=== PATIENT | female | born 1965 | race Caucasian/White ===

== ENCOUNTER → 2016-07-14 | Outpatient (CLI) | payer OTHER ==
--- NOTE | 2016-07-14 08:47 | RAD ---
Right knee radiographs History: Right knee pain for one week, fall. Comparison: None. Findings: AP, lateral, and oblique views of the right knee. No acute fracture or dislocation is identified. No joint effusion is appreciated. Mild medial compartment degeneration is seen with marginal osteophyte formation and relative preservation of the joint space. Impression: 1. Mild medial compartment degeneration. 2. No acute osseous traumatic injury identified.
== END | disposition home or self-care (01) ==
LOC: DXRADRC 08:33
PROVIDERS: ATTEND Physician Assistant Medical
DX: M25.561 Pain in right knee (principal); M25.761 Osteophyte, right knee; W19.XXXA Unspecified fall, initial encounter; Y99.8 Other external cause status; Y93.89 Activity, other specified; Y92.89 Other specified places as the place of occurrence of the external cause
CPT/HCPCS: 73562

== ENCOUNTER → 2016-11-08 | Outpatient (CLI) | payer OTHER ==
--- NOTE | 2016-11-08 11:25 | RAD ---
KUCandelario, 11/08/2016: History: Abdominal bloating Gas is present in large and small bowel in a nonspecific pattern. There is no evidence of organomegaly. No abnormal abdominal calcifications are seen. IMPRESSION: No acute abdominal abnormality is detected.
== END | disposition home or self-care (01) ==
LOC: DXRADRC 10:49
PROVIDERS: ATTEND Physician Assistant Medical
DX: R14.0 Abdominal distension (gaseous) (principal)
CPT/HCPCS: 74000

== ENCOUNTER → 2017-01-12 | Outpatient (CLI) | payer OTHER ==
--- NOTE | 2017-01-12 08:47 | RAD ---
Chest, 2 views, 01/12/2017: History: Chest congestion, productive cough The heart size and pulmonary vascularity are normal. No pulmonary infiltrates are seen. There is no evidence of pleural fluid. IMPRESSION: No acute cardiopulmonary abnormality is detected.
== END | disposition home or self-care (01) ==
LOC: DXRADRC 08:34
PROVIDERS: ATTEND Physician Assistant Medical
DX: R09.89 Other specified symptoms and signs involving the circulatory and respiratory systems (principal); R05 Cough
CPT/HCPCS: 71020

== ENCOUNTER → 2018-05-13 | Outpatient (CLI) | payer OTHER ==
--- NOTE | 2018-05-13 14:16 | RAD ---
3 view study of the thoracic spine Clinical indications: Status post fall last Sunday. Back pain. FINDINGS: No compression fracture or discitis or lytic process is seen. Mild degenerative endplate spurring present. IMPRESSION: No acute compression fracture. Electronically signed by: Sam Hill MD (05/13/2018 2:13 PM) [facility]
== END | disposition home or self-care (01) ==
LOC: PMG 11:00
PROVIDERS: ATTEND Registered Nurse
DX: M46.04 Spinal enthesopathy, thoracic region (principal); Z91.81 History of falling
CPT/HCPCS: 72072

== ENCOUNTER → 2018-05-16 | Outpatient (CLI) | payer OTHER ==
--- NOTE | 2018-05-16 14:28 | RAD ---
EXAM: Head CT without contrast. HISTORY: Syncope. TECHNIQUE: Computed tomographic images of the head were obtained without contrast. *One or more of the following individualized dose reduction techniques were utilized for this examination: 1. Automated exposure control. 2. Adjustment of the mA and/or kV according to patient size. 3. Use of iterative reconstruction technique. COMPARISON: None. FINDINGS: There is no acute or subacute extra-axial or intraparenchymal hemorrhage. There is no mass effect or midline shift. There is no hydrocephalus. The bland-white matter differentiation pattern is intact. 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 There is minimal mucosal thickening along the anterior left ethmoid sinus. There may be a tiny right ethmoid osteoma. The mastoid air cells are clear. No suspicious calvarial lesion is seen. IMPRESSION: No acute intracranial findings. Electronically signed by: Madyson Pruitt MD (05/16/2018 2:26 PM) [id number]
--- NOTE | 2018-05-17 08:08 | RAD ---
Clinical indications: Syncopal episodes. Duplex sonography of the cervical portion of both carotid arteries was performed including color flow imaging and spectral waveform analysis with flow velocity measurement and bland scale evaluation. Right side: Peak systolic flow velocity of the CCA is 78 cm/sec. Peak systolic flow velocity of the ICA is 86 cm/sec. Thus, the ICA/CCA ratio is 1.1. Peak end diastolic flow velocity of the ICA is 25 cm/sec. The peak systolic velocity of the ECA is 78 cm/sec. Left side: Peak systolic flow velocity of the CCA is 91 cm/sec. Peak systolic flow velocity of the ICA is 112 cm/sec. Thus, the ICA/CCA ratio is 1.2. Peak end diastolic flow velocity of the ICA is 39 cm/sec. Peak systolic flow velocity of the ECA is 81 cm/sec. No significant plaque formation is identified. Antegrade vertebral flow is seen bilaterally. The measurements were made using the NASCET criteria. Impression:No significant plaque formation is identified within the cervical portion of either carotid artery. Electronically signed by: Sam Hill MD (05/17/2018 8:05 AM) [facility]
== END | disposition home or self-care (01) ==
LOC: US 12:46
PROVIDERS: ATTEND Registered Nurse
DX: E34.8 Other specified endocrine disorders (principal); R55 Syncope and collapse
CPT/HCPCS: 70450; 93880

== ENCOUNTER → 2018-06-05 | Outpatient (CLI) | payer OTHER ==
[~2018-06-05] MED LIST: IOHEXOL 240 MG/ML 50ML VIAL. PO ONE; IOHEXOL 300 MG/ML 75 ML VIAL. IV ONE
--- NOTE | 2018-06-05 10:11 | RAD ---
PQRS Compliance statement: One or more of the following individualized dose reduction techniques were utilized for this examination: 1. Automated exposure control. 2. Adjustment of the mA and/or kV according to patient size. 3. Use of iterative reconstruction technique. Indication:Omni 300 75cc: Generalized abdomen pain, chronic constipation, bloating, inconsistent bowel habits TECHNIQUE: CT abdomen and pelvis with IV contrast with multiplanar reformats. COMPARISON: None FINDINGS: Heart is normal in size. No pericardial or pleural effusion. Clear lung bases. Liver, spleen, gallbladder, pancreas, adrenals and kidneys are within normal limits. No enlarged retroperitoneal or pelvic adenopathy. No free pelvic fluid or ascites. Shotty pelvic lymph nodes are seen, nonspecific most likely reactive. No bowel obstruction. Normal appendix. Anteverted uterus. Urinary bladder is within normal limits. Small omental fat-containing umbilical hernia. No suspicious bony lesion. IMPRESSION: No acute findings. Electronically signed by: Benjamin Rodrigues DO (06/05/2018 10:08 AM) [facility]
== END | disposition home or self-care (01) ==
LOC: CT 08:34
PROVIDERS: ATTEND Registered Nurse
DX: K42.9 Umbilical hernia without obstruction or gangrene (principal); R59.0 Localized enlarged lymph nodes; Z87.891 Personal history of nicotine dependence
CPT/HCPCS: 74177; Q9966; Q9967

== ENCOUNTER → 2018-06-27 | Outpatient (CLI) | payer OTHER ==
--- NOTE | 2018-06-27 13:46 | RAD ---
Examination: Ultrasound abdomen limited HISTORY: History of umbilical hernia COMPARISON: CT from 06/05/2018 Findings/ impression: There is a small umbilical hernia containing fat measuring 6 mm in transverse dimension at the neck of the umbilical hernia. Limited examination due to patient body habitus. Electronically signed by: Kaushik Boo MD (06/27/2018 1:43 PM) [id number]
== END | disposition home or self-care (01) ==
LOC: US 09:46
PROVIDERS: ATTEND Registered Nurse
DX: K42.9 Umbilical hernia without obstruction or gangrene (principal)
CPT/HCPCS: 76705

== ENCOUNTER 2018-07-21 20:43 | Emergency (ER) | payer OTHER ==
[~2018-07-21] VITALS: Ht 157.5 cm; Wt 100.7 kg
--- NOTE | 2018-07-21 21:03 | ED.ADGEN ---
Past History Past Medical History: Anxiety, CHF, Hepatitis, Other Past Surgical History Hernia surgery on 07/16/2018. Adult General Chief Complaint Chief Complaint ".. I had surgery for umbilicus hernia on 07/16.. by Dr. Llamas to fix my umbilicus hernia.. that seems to be going well... but my leg are swelled up... and never this bad..." HPI HPI Patient is a 53 year old female who presents with above hx and complaints bilateral leg edema. Patient states she's had leg edema previously and takes Lasix 20-40 mg a day. Patient under went umbilicus hernia repair by Dr. Llamas on 07/16. Incision site looks stable and no obvious inflammation or infection. Patient states the abdomen is nontender. She does have some issues with constipation because of taking pain meds. Kentrell night. Patient relates her swollen as concerned she may have developed a blood clot in both legs. Patient does have a follow-up with Dr. Llamas on . No history of fevers. Has been tolerating diet well. Patient normally follows with Patricia Anna. Patient does follow with cardiology. Patient does continue to smoke. Review of Systems Review of Systems Constitutional: Denies fever or chills [] Eyes: Denies change in visual acuity, redness, or eye pain [] HENT: Denies nasal congestion or sore throat [] Respiratory: Denies cough or shortness of breath [] Cardiovascular: No additional information not addressed in HPI [] GI: Denies abdominal pain, nausea, vomiting, bloody stools or diarrhea []complaints of constipation : Denies dysuria or hematuria [] Musculoskeletal: Denies back pain or joint pain []complaints of bilateral ankle edema Integument: Denies rash or skin lesions [] Neurologic: Denies headache, focal weakness or sensory changes [] Endocrine: Denies polyuria or polydipsia [] All other systems were reviewed and found to be within normal limits, except as documented in this note. Family History Family History Noncontributory Current Medications Current Medications Current Medications Medications (Trade) Dose Ordered Sig/Tatiana Start Time Stop Time Status Last Admin Dose Admin Furosemide (Lasix) 40 mg 1X ONCE 07/21/18 21:15 07/21/18 21:19 DC 07/21/18 22:06 40 MG Magnesium Hydroxide (Milk Of Magnesia) 2,400 mg STK-MED ONCE 07/22/18 00:29 07/22/18 00:36 DC Allergies Allergies Allergies Coded Allergies Type Severity Reaction Last Updated Verified No Known Drug Allergies 06/05/18 No Physical Exam Physical Exam Constitutional: Mild distress, non-toxic appearance. [] HENT: Normocephalic, atraumatic, bilateral external ears normal, oropharynx moist, no oral exudates, nose normal. [] Eyes: PERRLA, EOMI, conjunctiva normal, no discharge. [] Neck: Normal range of motion, no tenderness, supple, no stridor. [] Cardiovascular:Heart rate regular rhythm, no murmur [] Lungs & Thorax: Bilateral breath sounds equal apexes scattered wheezes on auscultation [] Abdomen: Bowel sounds normal, soft, no tenderness, no masses, no pulsatile m asses. [] Obese. Surgical site is stable and does not appear to be inflamed Skin: Warm, dry, no erythema, no rash. [] Back: No tenderness, no CVA tenderness. [] Extremities: No tenderness, no cyanosis, no clubbing, ROM intact, bilateral ankle and calf edema. [] Neurologic: Alert and oriented X 3, normal motor function, normal sensory function, no focal deficits noted. [] Psychologic: Affect anxious, judgement normal, mood normal. [] Current Patient Data Vital Signs Vital Signs Date Time Temp Pulse Resp B/P (MAP) Pulse Ox O2 Delivery O2 Flow Rate FiO2 07/21/18 23:53 94 20 118/75 (89) 94 Room Air 07/21/18 20:53 98.3 Lab Results Laboratory Tests Test 07/21/18 21:45 07/21/18 22:00 Urine Collection Type Unknown Urine Color Yellow Urine Clarity Hazy Urine pH 6.0 Urine Specific [place] 1.010 Urine Protein Neg (NEG-TRACE) Urine Glucose (UA) Neg mg/dL (NEG) Urine Ketones (Stick) Neg mg/dL (NEG) Urine Blood Neg (NEG) Urine Nitrite Neg (NEG) Urine Bilirubin Neg (NEG) Urine Urobilinogen Dipstick 0.2 mg/dL (0.2 mg/dL) Urine Leukocyte Esterase Neg (NEG) Urine RBC 0 /HPF (0-2) Urine WBC 0 /HPF (0-4) Urine Squamous Epithelial Cells Occ /LPF Urine Bacteria 0 /HPF (0-FEW) Urine Opiates Screen Pos (NEG) Urine Methadone Screen Neg (NEG) Urine Barbiturates Neg (NEG) Urine Phencyclidine Screen Neg (NEG) Urine Amphetamine/Methamphetamine Neg (NEG) Urine Benzodiazepines Screen Neg (NEG) Urine Cocaine Screen Neg (NEG) Urine Cannabinoids Screen Neg (NEG) Urine Ethyl Alcohol Neg (NEG) White Blood Count 10.8 x10^3/uL (4.0-11.0) Red Blood Count 4.77 x10^6/uL (3.50-5.40) Hemoglobin 14.4 g/dL (12.0-15.5) Hematocrit 42.9 % (36.0-47.0) Mean Corpuscular Volume 90 fL (79-100) Mean Corpuscular Hemoglobin 30 pg (25-35) Mean Corpuscular Hemoglobin Concent 34 g/dL (31-37) Red Cell Distribution Width 14.8 % (11.5-14.5) H Platelet Count 322 x10^3/uL (140-400) Neutrophils (%) (Auto) 52 % (31-73) Lymphocytes (%) (Auto) 36 % (24-48) Monocytes (%) (Auto) 8 % (0-9) Eosinophils (%) (Auto) 3 % (0-3) Basophils (%) (Auto) 1 % (0-3) Neutrophils # (Auto) 5.6 x10^3uL (1.8-7.7) Lymphocytes # (Auto) 3.9 x10^3/uL (1.0-4.8) Monocytes # (Auto) 0.8 x10^3/uL (0.0-1.1) Eosinophils # (Auto) 0.3 x10^3/uL (0.0-0.7) Basophils # (Auto) 0.1 x10^3/uL (0.0-0.2) Prothrombin Time 9.3 SEC (9.4-11.4) L Prothrombin Time INR 0.9 (0.9-1.1) PTT 28 SEC (23-33) D-Dimer (Sallie) 0.47 mg/L (0.00-0.50) Sodium Level 138 mmol/L (136-145) Potassium Level 4.1 mmol/L (3.5-5.1) Chloride Level 98 mmol/L (98-107) Carbon Dioxide Level 34 mmol/L (21-32) H Anion Gap 6 (6-14) Blood Urea Nitrogen 13 mg/dL (7-20) Creatinine 0.8 mg/dL (0.6-1.0) Estimated GFR (Cockcroft-Gault) 75.0 Glucose Level 95 mg/dL (70-99) Calcium Level 9.1 mg/dL (8.5-10.1) Magnesium Level 2.0 mg/dL (1.8-2.4) Total Bilirubin 0.3 mg/dL (0.2-1.0) Direct Bilirubin 0.1 mg/dL (0.0-0.2) Aspartate Amino Transferase (AST) 16 U/L (15-37) Alanine Aminotransferase (ALT) 24 U/L (14-59) Alkaline Phosphatase 86 U/L (46-116) Creatine Kinase 113 U/L (26-192) Troponin I Quantitative < 0.017 ng/mL (0-0.055) JF-Czm-B-Type Natriuretic Peptide 20 pg/mL (0-124) Total Protein 7.5 g/dL (6.4-8.2) Albumin 3.2 g/dL (3.4-5.0) L Lipase 114 U/L (73-393) EKG EKG My interpretation EKG shows sinus rhythm at 87 bpm. No acute morphology.[] Radiology/Procedures Radiology/Procedures My interpretation of chest x-ray shows no acute cardiopulmonary findings. No free air in the diaphragm. Does have stool throughout the colon consistent with constipation.[] Ultrasound showed no obvious DVT. Did have bilateral groin adenopathy. Course & Med Decision Making Course & Med Decision Making Pertinent Labs and Imaging studies reviewed. (See chart for details) Discussed presentation, labs and treatment plan with Dr. Childress tectonophysicist for Dr. Llamas- patient keep follow-up with Dr. Llamas as scheduled. Patient to take Lasix as previous directed. Patient did receive Lasix while in the emergency room and patient reports reduction in her bilateral leg edema. Trace patient stop smoking. Patient take meds as previous directed. Patient return of any concerns. Patient go on a clear fluid diet until she is stooling. Patient will take milk of magnesia daily while she is on pain meds. Patient follow-up primary care. Patient to revisit issue of groin adenopathy. With primary and Dr. Llamas. Adenopathy may be due to recent surgery or incidental finding. Pt. to return if any erythema, fever , chills or any concerns. Encouraged patient to stop smoking. Encouraged patient to use her support stockings. [] Final Impression Final Impression 1. Leg Edema [2. Umbilicus Hernia Repair- 2019 . 3. Mild groin adenopathy 4. Constipation Dragon Disclaimer Dragon Disclaimer This electronic medical record was generated, in whole or in part, using a voice recognition dictation system. Discharge Summary Visit Information Final Diagnosis Problems Medical Problems: (1) Constipation Status: Acute (2) Inguinal lymphadenopathy Status: Acute (3) Leg edema, left Status: Acute (4) Leg edema, right Status: Acute Brief Hospital Course Allergies Allergies Coded Allergies Type Severity Reaction Last Updated Verified No Known Drug Allergies 06/05/18 No Vital Signs Vital Signs Date Time Temp Pulse Resp B/P (MAP) Pulse Ox O2 Delivery O2 Flow Rate FiO2 07/21/18 23:53 94 20 118/75 (89) 94 Room Air 07/21/18 20:53 98.3 Lab Results Laboratory Tests Test 07/21/18 21:45 07/21/18 22:00 Urine Collection Type Unknown Urine Color Yellow Urine Clarity Hazy Urine pH 6.0 Urine Specific [place] 1.010 Urine Protein Neg (NEG-TRACE) Urine Glucose (UA) Neg mg/dL (NEG) Urine Ketones (Stick) Neg mg/dL (NEG) Urine Blood Neg (NEG) Urine Nitrite Neg (NEG) Urine Bilirubin Neg (NEG) Urine Urobilinogen Dipstick 0.2 mg/dL (0.2 mg/dL) Urine Leukocyte Esterase Neg (NEG) Urine RBC 0 /HPF (0-2) Urine WBC 0 /HPF (0-4) Urine Squamous Epithelial Cells Occ /LPF Urine Bacteria 0 /HPF (0-FEW) Urine Opiates Screen Pos (NEG) Urine Methadone Screen Neg (NEG) Urine Barbiturates Neg (NEG) Urine Phencyclidine Screen Neg (NEG) Urine Amphetamine/Methamphetamine Neg (NEG) Urine Benzodiazepines Screen Neg (NEG) Urine Cocaine Screen Neg (NEG) Urine Cannabinoids Screen Neg (NEG) Urine Ethyl Alcohol Neg (NEG) White Blood Count 10.8 x10^3/uL (4.0-11.0) Red Blood Count 4.77 x10^6/uL (3.50-5.40) Hemoglobin 14.4 g/dL (12.0-15.5) Hematocrit 42.9 % (36.0-47.0) Mean Corpuscular Volume 90 fL (79-100) Mean Corpuscular Hemoglobin 30 pg (25-35) Mean Corpuscular Hemoglobin Concent 34 g/dL (31-37) Red Cell Distribution Width 14.8 % (11.5-14.5) Platelet Count 322 x10^3/uL (140-400) Neutrophils (%) (Auto) 52 % (31-73) Lymphocytes (%) (Auto) 36 % (24-48) Monocytes (%) (Auto) 8 % (0-9) Eosinophils (%) (Auto) 3 % (0-3) Basophils (%) (Auto) 1 % (0-3) Neutrophils # (Auto) 5.6 x10^3uL (1.8-7.7) Lymphocytes # (Auto) 3.9 x10^3/uL (1.0-4.8) Monocytes # (Auto) 0.8 x10^3/uL (0.0-1.1) Eosinophils # (Auto) 0.3 x10^3/uL (0.0-0.7) Basophils # (Auto) 0.1 x10^3/uL (0.0-0.2) Prothrombin Time 9.3 SEC (9.4-11.4) Prothromb Time International Ratio 0.9 (0.9-1.1) Activated Partial Thromboplast Time 28 SEC (23-33) D-Dimer (Sallie) 0.47 mg/L (0.00-0.50) Sodium Level 138 mmol/L (136-145) Potassium Level 4.1 mmol/L (3.5-5.1) Chloride Level 98 mmol/L (98-107) Carbon Dioxide Level 34 mmol/L (21-32) Anion Gap 6 (6-14) Blood Urea Nitrogen 13 mg/dL (7-20) Creatinine 0.8 mg/dL (0.6-1.0) Estimated GFR (Cockcroft-Gault) 75.0 Glucose Level 95 mg/dL (70-99) Calcium Level 9.1 mg/dL (8.5-10.1) Magnesium Level 2.0 mg/dL (1.8-2.4) Total Bilirubin 0.3 mg/dL (0.2-1.0) Direct Bilirubin 0.1 mg/dL (0.0-0.2) Aspartate Amino Transf (AST/SGOT) 16 U/L (15-37) Alanine Aminotransferase (ALT/SGPT) 24 U/L (14-59) Alkaline Phosphatase 86 U/L (46-116) Creatine Kinase 113 U/L (26-192) Troponin I Quantitative < 0.017 ng/mL (0-0.055) NC-Cjg-C-Type Natriuretic Peptide 20 pg/mL (0-124) Total Protein 7.5 g/dL (6.4-8.2) Albumin 3.2 g/dL (3.4-5.0) Lipase 114 U/L (73-393) Brief Hospital Course Ms. Diego is a 53 old female who presented with bilateral ankle and calf edema. Discharge Information Condition at Discharge: Improved Disposition/Orders: D/C to Home Dischare Medications Current Medications Furosemide (Lasix) 40 mg 1X ONCE IVP Last administered on 07/21/18at 22:06; Admin Dose 40 MG; Start 07/21/18 at 21:15; Stop 07/21/18 at 21:19; Status DC Magnesium Hydroxide (Milk Of Magnesia) 2,400 mg 1X ONCE PO Last administered on 07/22/18at 00:31; Admin Dose 2,400 MG; Start 07/22/18 at 00:15; Stop 07/22/18 at 00:36; Status DC Magnesium Hydroxide (Milk Of Magnesia) 2,400 mg STK-MED ONCE .ROUTE ; Start 07/22/18 at 00:29; Stop 07/22/18 at 00:36; Status DC Dragon Disclaimer This chart was dictated in whole or in part using Voice Recognition software in a busy, high-work load, and often noisy Emergency Department environment. It may contain unintended and wholly unrecognized errors or omissions. TATE ESQUIVEL MD July 21, 2018 21:03
[2018-07-21] MEDS ORDERED: FUROSEMIDE 40 MG/4 ML VIAL IVP ONE (21:15)
[2018-07-21 22:18] LABS: BASO # 0.1 x10^3/uL (0.0-0.2); BASO % 1 % (0-3); EOS # 0.3 x10^3/uL (0.0-0.7); EOS % 3 % (0-3); HEMATOCRIT 42.9 % (36.0-47.0); HEMOGLOBIN 14.4 g/dL (12.0-15.5); LYMPH # 3.9 x10^3/uL (1.0-4.8); LYMPH % 36 % (24-48); MEAN CORPUSCULAR HEMOGLOBIN 30 pg (25-35); MEAN CORPUSCULAR HGB CONC 34 g/dL (31-37); MEAN CORPUSCULAR VOLUME 90 fL (79-100); MONO # 0.8 x10^3/uL (0.0-1.1); MONO % 8 % (0-9); NEUT # 5.6 x10^3uL (1.8-7.7); NEUT % 52 % (31-73); PLATELET COUNT 322 x10^3/uL (140-400); RED BLOOD COUNT 4.77 x10^6/uL (3.50-5.40); RED CELL DISTRIBUTION WIDTH 14.8 % (11.5-14.5); WHITE BLOOD COUNT 10.8 x10^3/uL (4.0-11.0)
[2018-07-21 22:21] LABS: BACTERIA,URINE 0 /HPF (0-FEW); BILIRUBIN,URINE NEG (NEG); CLARITY,URINE HAZY; COLOR,URINE YELLOW; GLUCOSE,URINE NEG (NEG); NITRITE,URINE NEG (NEG); RBC,URINE 0 /HPF (0-2); UROBILINOGEN,URINE 0.2 mg/dL (0.2 mg/dL); WBC,URINE 0 /HPF (0-4)
[2018-07-21 22:22] LABS: SQUAMOUS EPITHELIAL CELL,UR OCC /LPF
[2018-07-21 22:24] LABS: AMPHETAMINE/METHAMPHETAMINE NEG (NEG); BARBITURATES NEG (NEG); BENZODIAZEPINES NEG (NEG); CANNABINOIDS NEG (NEG); COCAINE NEG (NEG); METHADONE NEG (NEG); OPIATES POS (NEG); PHENCYCLIDINE NEG (NEG)
[2018-07-21 22:36] LABS: ALBUMIN 3.2 g/dL (3.4-5.0); CALCIUM 9.1 mg/dL (8.5-10.1); CREATININE 0.8 mg/dL (0.6-1.0); DIRECT BILIRUBIN 0.1 mg/dL (0.0-0.2); POTASSIUM 4.1 mmol/L (3.5-5.1); TOTAL BILIRUBIN 0.3 mg/dL (0.2-1.0); TOTAL PROTEIN 7.5 g/dL (6.4-8.2)
--- NOTE | 2018-07-21 23:47 | RAD ---
Examination: Bilateral Lower Extremity Venous Doppler Ultrasound History: Bilateral lower extremity swelling Comparison: None Procedure: Flores scale, color flow 2D and spectal waveform analysis images are obtained with and without compression in the area of the common femoral vein, superficial femoral vein - femoral vein junction, main femoral vein (superficial femoral vein) and popliteal vein. Veins of the proximal calf are also imaged. Findings: There is normal duplex flow, color flow and compressibility of all visualized vein segments. No evidence of deep venous thrombus is present. Mild soft tissue edema identified in the bilateral calf region. Bilateral inguinal lymph nodes identified. Impression: No evidence of DVT in the visualized bilateral lower extremity venous system. Electronically signed by: Kaushik Boo MD (07/21/2018 11:44 PM) [facility]
[2018-07-21 23:53] VITALS: BP 118/75
[2018-07-22] MEDS ORDERED: MAGNESIUM HYDROXIDE 2,400 MG/30 ML ORAL.SUSP. PO ONE (00:15)
[2018-07-22] MEDS ORDERED: MAGNESIUM HYDROXIDE 2,400 MG/30 ML ORAL.SUSP. ONE (00:29)
--- NOTE | 2018-07-22 08:30 | RAD ---
Acute abdomen series with chest, 07/21/2018: HISTORY: Bilateral leg edema recent umbilical hernia repair There is a moderate amount of stool scattered throughout the colon. No free air is present in the abdomen. There is no evidence organomegaly or abnormal abdominal calcification. The heart size is normal. The lungs are clear. There is no evidence of pleural fluid. IMPRESSION: 1. Moderate amount of stool throughout the colon. 2. No acute abdominal abnormality is detected. Electronically signed by: Rl Landrum MD (07/22/2018 8:27 AM) [facility]
--- NOTE | 2018-07-24 16:13 | EKG ---
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
== END 2018-07-22 00:31 | disposition home or self-care (01) ==
LOC: ER 20:43
DX: R60.0 Localized edema (principal); K59.00 Constipation, unspecified; R59.1 Generalized enlarged lymph nodes; F41.9 Anxiety disorder, unspecified; I50.9 Heart failure, unspecified
CPT/HCPCS: 36415; 74022; 80048; 80076; 80307; 81001; 82550; 83690; 83735; 83880; 84443; 84484; 85025; 85379; 85610; 85730; 86705; 86709; 86803; 87340; 93005; 93970; 96374; 99285; J1940

== ENCOUNTER 2019-04-09 15:38 | Emergency (ER) | payer OTHER ==
[2019-04-09 17:14] LABS: WHITE BLOOD COUNT 12.3 x10^3/uL (4.0-11.0)
[2019-04-09 17:15] LABS: BASO # 0.1 x10^3/uL (0.0-0.2); BASO % 1 % (0-3); EOS # 0.2 x10^3/uL (0.0-0.7); EOS % 2 % (0-3); HEMOGLOBIN 15.7 g/dL (12.0-15.5); LYMPH # 3.4 x10^3/uL (1.0-4.8); LYMPH % 28 % (24-48); MEAN CORPUSCULAR HEMOGLOBIN 30 pg (25-35); MEAN CORPUSCULAR HGB CONC 33 g/dL (31-37); MEAN CORPUSCULAR VOLUME 91 fL (79-100); MONO # 1.1 x10^3/uL (0.0-1.1); MONO % 9 % (0-9); NEUT # 7.4 x10^3uL (1.8-7.7); NEUT % 60 % (31-73); PLATELET COUNT 357 x10^3/uL (140-400); RED BLOOD COUNT 5.28 x10^6/uL (3.50-5.40); RED CELL DISTRIBUTION WIDTH 14.2 % (11.5-14.5)
[2019-04-09 17:16] LABS: ALBUMIN 3.8 g/dL (3.4-5.0); ALBUMIN/GLOBULIN RATIO 0.7 (1.0-1.7); CALCIUM 9.6 mg/dL (8.5-10.1); CREATININE 0.9 mg/dL (0.6-1.0); GFR 65.5; POTASSIUM 3.6 mmol/L (3.5-5.1); TOTAL BILIRUBIN 0.4 mg/dL (0.2-1.0); TOTAL PROTEIN 8.9 g/dL (6.4-8.2)
--- NOTE | 2019-04-09 17:19 | RAD ---
Exam: Chest 2 views INDICATION: Cough TECHNIQUE: Frontal and lateral views the chest Comparisons: 01/12/2017 FINDINGS: The cardiomediastinal silhouette and pulmonary vessels are within normal limits. Strandy opacities at the lung bases. No pleural effusion. IMPRESSION: Bibasilar atelectasis. Electronically signed by: Lazaro Huddleston MD (04/09/2019 5:16 PM) [facility]
--- NOTE | 2019-04-09 17:51 | RAD ---
Left Lower Extremity Venous Doppler Ultrasound History: Pain Comparison: None Procedure: Color flow, duplex, spectral analysis and 2D images are obtained with and without compression in the area of the common femoral vein, superficial femoral vein - femoral vein junction, main femoral vein (superficial femoral vein) and popliteal vein. Veins of the proximal calf are also imaged. Findings: There is normal duplex flow, color flow and compressibility of all visualized vein segments. No evidence of deep venous thrombus is present. Impression: No evidence of DVT. Electronically signed by: Nicolas Dickerson III, MD (04/09/2019 5:49 PM) [place] [id number]
--- NOTE | 2019-04-09 18:14 | PHYS DOC ---
Past History Past Medical History: Anxiety, Bronchitis, CHF, Hepatitis, Other Past Surgical History: Other Smoking: Cigarettes Alcohol Use: Occasionally Drug Use: None Adult General Chief Complaint Chief Complaint: LOWER EXT PAIN HPI HPI Patient is a 53 year old female who presents with above hx and complains of lower leg pain. Review of Systems Review of Systems Constitutional: Denies fever or chills [] Eyes: Denies change in visual acuity, redness, or eye pain [] HENT: Denies nasal congestion or sore throat [] Respiratory: Denies cough or shortness of breath [] Cardiovascular: No additional information not addressed in HPI [] GI: Denies abdominal pain, nausea, vomiting, bloody stools or diarrhea [] : Denies dysuria or hematuria [] Musculoskeletal: Denies back pain or joint pain [] Integument: Denies rash or skin lesions [] Neurologic: Denies headache, focal weakness or sensory changes [] Endocrine: Denies polyuria or polydipsia [] All other systems were reviewed and found to be within normal limits, except as documented in this note. Current Medications Current Medications Current Medications Medications (Trade) Dose Ordered Sig/Tatiana Start Time Stop Time Status Last Admin Dose Admin Iohexol (Omnipaque 350 Mg/ml) 100 ml 1X ONCE 04/09/19 18:15 04/09/19 18:16 Allergies Allergies Allergies Coded Allergies Type Severity Reaction Last Updated Verified No Known Drug Allergies 06/05/18 No Physical Exam Physical Exam Constitutional: Well developed, well nourished, no acute distress, non-toxic appearance. [] HENT: Normocephalic, atraumatic, bilateral external ears normal, oropharynx moist, no oral exudates, nose normal. [] Eyes: PERRLA, EOMI, conjunctiva normal, no discharge. [] Neck: Normal range of motion, no tenderness, supple, no stridor. [] Cardiovascular:Heart rate regular rhythm, no murmur [] Lungs & Thorax: Bilateral breath sounds clear to auscultation [] Abdomen: Bowel sounds normal, soft, no tenderness, no masses, no pulsatile masses. [] Skin: Warm, dry, no erythema, no rash. [] Back: No tenderness, no CVA tenderness. [] Extremities: No tenderness, no cyanosis, no clubbing, ROM intact, no edema. [] Neurologic: Alert and oriented X 3, normal motor function, normal sensory function, no focal deficits noted. [] Psychologic: Affect normal, judgement normal, mood normal. [] Current Patient Data Lab Results Laboratory Tests Test 04/09/19 16:26 White Blood Count 12.3 x10^3/uL (4.0-11.0) H Red Blood Count 5.28 x10^6/uL (3.50-5.40) Hemoglobin 15.7 g/dL (12.0-15.5) H Hematocrit 48.0 % (36.0-47.0) H Mean Corpuscular Volume 91 fL (79-100) Mean Corpuscular Hemoglobin 30 pg (25-35) Mean Corpuscular Hemoglobin Concent 33 g/dL (31-37) Red Cell Distribution Width 14.2 % (11.5-14.5) Platelet Count 357 x10^3/uL (140-400) Neutrophils (%) (Auto) 60 % (31-73) Lymphocytes (%) (Auto) 28 % (24-48) Monocytes (%) (Auto) 9 % (0-9) Eosinophils (%) (Auto) 2 % (0-3) Basophils (%) (Auto) 1 % (0-3) Neutrophils # (Auto) 7.4 x10^3uL (1.8-7.7) Lymphocytes # (Auto) 3.4 x10^3/uL (1.0-4.8) Monocytes # (Auto) 1.1 x10^3/uL (0.0-1.1) Eosinophils # (Auto) 0.2 x10^3/uL (0.0-0.7) Basophils # (Auto) 0.1 x10^3/uL (0.0-0.2) D-Dimer (Sallie) 0.84 mg/L (0.00-0.50) H Sodium Level 138 mmol/L (136-145) Potassium Level 3.6 mmol/L (3.5-5.1) Chloride Level 96 mmol/L (98-107) L Carbon Dioxide Level 34 mmol/L (21-32) H Anion Gap 8 (6-14) Blood Urea Nitrogen 12 mg/dL (7-20) Creatinine 0.9 mg/dL (0.6-1.0) Estimated GFR (Cockcroft-Gault) 65.5 BUN/Creatinine Ratio 13 (6-20) Glucose Level 130 mg/dL (70-99) H Calcium Level 9.6 mg/dL (8.5-10.1) Total Bilirubin 0.4 mg/dL (0.2-1.0) Aspartate Amino Transferase (AST) 19 U/L (15-37) Alanine Aminotransferase (ALT) 26 U/L (14-59) Alkaline Phosphatase 99 U/L (46-116) Total Protein 8.9 g/dL (6.4-8.2) H Albumin 3.8 g/dL (3.4-5.0) Albumin/Globulin Ratio 0.7 (1.0-1.7) L EKG EKG [] Radiology/Procedures Radiology/Procedures [address] [address] IMAGING REPORT Signed PATIENT: PATRICK MARTINEZ ACCOUNT: [id number] : 1965 LOCATION: ER AGE: 53 SEX: F EXAM STATUS: REG ER ORD. PHYSICIAN: RASHIDA LOPEZ MD REASON: Right sided chest pain, extremity swelling PROCEDURE: CT ANGIOGRAPHY CHEST Exam: CT of chest with contrast INDICATION: Right-sided chest pain TECHNIQUE: Sequential axial images through the chest obtained following the administration of 100 mL of Isovue-370 IV contrast. Sagittal and coronal reformatted images were reconstructed from the axial data and reviewed. 3-D reformatted images were reconstructed from the axial data and reviewed. Comparisons: Chest x-ray same day FINDINGS: Visualized portions of the thyroid are unremarkable. No enlarged mediastinal lymph nodes are identified. Heart size is normal. Mild coronary artery calcifications are noted. Thoracic aorta has a normal course and caliber. Pulmonary artery is not enlarged. No pulmonary embolus identified within the main, lobar or segmental pulmonary arteries. Airways are patent. No consolidation or pneumothorax. There is a 3 mm nodule in the right upper lobe series 4 image 51. No pleural effusion or thickening. No pleural effusion or thickening. Visualized upper abdomen is unremarkable. No suspicious osseous lesions or acute fractures. IMPRESSION: 1. No pulmonary embolus identified within the main, lobar or segmental pulmonary arteries. 2. A 3 mm nodule in the right upper lobe series 4 image 51. In a low-risk patient no further follow-up imaging is recommended. In a high-risk patient optional one-year follow-up CT can BE performed. Exposure: One or more of the following in the visualized dose reduction techniques were utilized for this examination: 1. Automated exposure control 2. Adjustment of the MA and/or KV according to patient size 3. Use of iterative of reconstructive technique Electronically signed by: Lazaro Woods MD (04/09/2019 6:39 PM) [facility] DICTATED AND SIGNED BY: LAZARO WOODS MD DATE: 04/09/19 183 CC: TATE ESQUIVEL MD; RYAN RADER; RASHIDA LOPEZ MD ~ [[address] [address] IMAGING REPORT Signed PATIENT: PATRICK MARTINEZ ACCOUNT: [id number] : 1965 LOCATION: ER AGE: 53 SEX: F EXAM STATUS: REG ER ORD. PHYSICIAN: RASHIDA LOPEZ MD REASON: dvt PROCEDURE: VENOUS LOWER EXTREMITY LEFT Left Lower Extremity Venous Doppler Ultrasound History: Pain Comparison: None Procedure: Color flow, duplex, spectral analysis and 2D images are obtained with and without compression in the area of the common femoral vein, superficial femoral vein - femoral vein junction, main femoral vein (superficial femoral vein) and popliteal vein. Veins of the proximal calf are also imaged. Findings: There is normal duplex flow, color flow and compressibility of all visualized vein segments. No evidence of deep venous thrombus is present. Impression: No evidence of DVT. Electronically signed by: Renetta Zamora III, MD (04/09/2019 5:49 PM) [facility] DICTATED AND SIGNED BY: RENETTA ZAMORA III, MD DATE: 04/09/19 089 CC: MISBAH; RYAN RADER; RASHIDA LOPEZ MD ~ ][address] [address] IMAGING REPORT Signed PATIENT: PATRICK MARTINEZ ACCOUNT: [id number] : 1965 LOCATION: ER AGE: 53 SEX: F EXAM STATUS: REG ER ORD. PHYSICIAN: RASHIDA LOPEZ MD REASON: cough PROCEDURE: CHEST PA & LATERAL Exam: Chest 2 views INDICATION: Cough TECHNIQUE: Frontal and lateral views the chest Comparisons: 01/12/2017 FINDINGS: The cardiomediastinal silhouette and pulmonary vessels are within normal limits. Strandy opacities at the lung bases. No pleural effusion. IMPRESSION: Bibasilar atelectasis. Electronically signed by: Lazaro Woods MD (04/09/2019 5:16 PM) [facility] DICTATED AND SIGNED BY: LAZARO WOODS MD DATE: 04/09/191715 CC: [facility]; RYAN RADER; RASHIDA LOPEZ MD ~ Course & Med Decision Making Course & Med Decision Making Pertinent Labs and Imaging studies reviewed. (See chart for details) See Report for Details. Re-exam at shift change- HEENT no acute, Chest BS =, few scattered wheezes, CV RRR, no murmur, few basilar crackles, PMI slightly to the left, Abdomen- obese. Nontender. Extremities- no cording appreciated. Mild ankle edema, slight bila teral erythema ? cellulitis Pt seen previously in [facility] and later in - Received IM injection Rocephin. Pt. reports marked improvement/ resolution of all complaints and wheezing at 1920 hrs. Pt. elects to be discharge. Risk s discussed. UCAR capacity. Must make a serious effort to stop smoking. Take prednisone 50 mg daily for 5 days. Use MDI 2 puffs 4 times a day. Take doxycycline as directed. Baby aspirin a day. Keep follow-up with [facility]. Return if any concerns. Impression: 1. Lower Leg pain/ Edema- ?cellulitis vs peripheral vascular disease 2. Mild Leukocytosis 3. DM glu = 130 4. Elevation D-dimer= 0.84 5. Bronchitis 6. Tobacco Use [] Dragon Disclaimer Dragon Disclaimer This electronic medical record was generated, in whole or in part, using a voice recognition dictation system. Departure Departure: Disposition: HOME/RESIDENCE PRIOR TO ADM Condition: STABLE Referrals: RYAN RADER (PCP) Scripts Prednisone (PREDNISONE) 50 Mg Tablet 50 MG PO DAILY for bronciitis for 5 Days, #5 TAB Prov: TATE ESQUIVEL MD 04/09/19 Casimiro Disclaimer This chart was dictated in whole or in part using Voice Recognition software in a busy, high-work load, and often noisy Emergency Department environment. It m ay contain unintended and wholly unrecognized errors or omissions. TATE ESQUIVEL MD Apr 09, 2019 18:14
[2019-04-09] MEDS ORDERED: IOHEXOL 350 MG/ML 100 ML VIAL. IV ONE (18:15)
--- NOTE | 2019-04-09 18:42 | RAD ---
Exam: CT of chest with contrast INDICATION: Right-sided chest pain TECHNIQUE: Sequential axial images through the chest obtained following the administration of 100 mL of Isovue-370 IV contrast. Sagittal and coronal reformatted images were reconstructed from the axial data and reviewed. 3-D reformatted images were reconstructed from the axial data and reviewed. Comparisons: Chest x-ray same day FINDINGS: Visualized portions of the thyroid are unremarkable. No enlarged mediastinal lymph nodes are identified. Heart size is normal. Mild coronary artery calcifications are noted. Thoracic aorta has a normal course and caliber. Pulmonary artery is not enlarged. No pulmonary embolus identified within the main, lobar or segmental pulmonary arteries. Airways are patent. No consolidation or pneumothorax. There is a 3 mm nodule in the right upper lobe series 4 image 51. No pleural effusion or thickening. No pleural effusion or thickening. Visualized upper abdomen is unremarkable. No suspicious osseous lesions or acute fractures. IMPRESSION: 1. No pulmonary embolus identified within the main, lobar or segmental pulmonary arteries. 2. A 3 mm nodule in the right upper lobe series 4 image 51. In a low-risk patient no further follow-up imaging is recommended. In a high-risk patient optional one-year follow-up CT can BE performed. Exposure: One or more of the following in the visualized dose reduction techniques were utilized for this examination: 1. Automated exposure control 2. Adjustment of the MA and/or KV according to patient size 3. Use of iterative of reconstructive technique Electronically signed by: Lazaro Huddleston MD (04/09/2019 6:39 PM) [facility]
[2019-04-09] MEDS ORDERED: PRED50TA PO (19:12)
[2019-04-09] MEDS ORDERED: predniSONE 10 MG TABLET PO ONE (19:15)
[2019-04-09] MEDS ORDERED: ALBUTEROL SULFATE 8GM INHALER. INH ONE (19:15)
[2019-04-09 19:31] VITALS: BP 102/70
== END 2019-04-09 19:40 | disposition home or self-care (01) ==
LOC: ER 15:38
DX: M79.662 Pain in left lower leg (principal); J40 Bronchitis, not specified as acute or chronic; F17.210 Nicotine dependence, cigarettes, uncomplicated; E11.9 Type 2 diabetes mellitus without complications; D72.829 Elevated white blood cell count, unspecified; R79.1 Abnormal coagulation profile
CPT/HCPCS: 36415; 71046; 71275; 80053; 85025; 85379; 93971; 94640; 99285; J7512; J7613; Q9967; 94664

== ENCOUNTER 2019-04-13 11:43 | Emergency (ER) | payer OTHER ==
[~2019-04-13] VITALS: Ht 157.5 cm; Wt 100.9 kg
[~2019-04-13 11:43] MED LIST changes: -IOHEXOL 240 MG/ML 50ML VIAL. PO ONE; -IOHEXOL 300 MG/ML 75 ML VIAL. IV ONE; +PRED50TA PO
[2019-04-13] MEDS ORDERED: ONDANSETRON PF 4 MG/2 ML VIAL. IVP ONE (12:00)
[2019-04-13] MEDS ORDERED: MORPHINE SULFATE 4 MG/ML DISP.SYRIN. IV ONE (12:00)
--- NOTE | 2019-04-13 12:24 | RAD ---
RIBS RIGHT AND PA CHEST History: Chest pain Comparison: April 09, 2019 Findings: Single view of the chest and 4 additional views of the right ribs are submitted. There is some increased, left greater than right bibasilar atelectasis. No pneumothorax is identified. There is no significant dependent pleural fluid. No displaced right rib fracture is identified by radiographs. Impression: 1. There is increased left greater than right bibasilar atelectasis. Electronically signed by: Curtis Courtney MD (04/13/2019 12:22 PM) [facility]
[2019-04-13 12:26] LABS: BASO # 0.1 x10^3/uL (0.0-0.2); BASO % 1 % (0-3); EOS # 0.1 x10^3/uL (0.0-0.7); EOS % 1 % (0-3); LYMPH # 2.6 x10^3/uL (1.0-4.8); LYMPH % 21 % (24-48); MEAN CORPUSCULAR HEMOGLOBIN 30 pg (25-35); MEAN CORPUSCULAR HGB CONC 33 g/dL (31-37); MEAN CORPUSCULAR VOLUME 92 fL (79-100); MONO # 0.7 x10^3/uL (0.0-1.1); MONO % 6 % (0-9); NEUT # 8.8 x10^3uL (1.8-7.7); NEUT % 71 % (31-73); PLATELET COUNT 360 x10^3/uL (140-400); RED BLOOD COUNT 5.01 x10^6/uL (3.50-5.40); RED CELL DISTRIBUTION WIDTH 14.5 % (11.5-14.5); WHITE BLOOD COUNT 12.3 x10^3/uL (4.0-11.0)
[2019-04-13 12:28] LABS: CALCIUM 8.7 mg/dL (8.5-10.1); POTASSIUM 3.6 mmol/L (3.5-5.1)
[2019-04-13 12:31] LABS: ALBUMIN 3.6 g/dL (3.4-5.0); ALBUMIN/GLOBULIN RATIO 0.8 (1.0-1.7); TOTAL BILIRUBIN 0.3 mg/dL (0.2-1.0)
[2019-04-13 12:59] VITALS: BP 145/88
[2019-04-13] MEDS ORDERED: HYDR-2759 PO (13:00)
--- NOTE | 2019-04-13 13:18 | PHYS DOC ---
Past History Past Medical History: Anxiety, Bronchitis, CHF, Hepatitis, Other Past Surgical History: No Surgical History Smoking: Cigarettes Alcohol Use: None Drug Use: None Adult General Chief Complaint Chief Complaint: CHEST PAIN HPI HPI Patient is a presents with right axillary chest wall pain 3 days. Patient was evaluated in this emergency department earlier this week for cough, shortness of breath and had extensive evaluation including lab, EKG and CT of the chest. Patient was treated for bronchitis and discharged with prednisone and doxycycline. She is continued to take this along with ibuprofen with relief of respiratory symptoms but with persistent chest wall pain. Patient reports point tenderness over chest wall worse with coughing and deep breathing. No other new or worsening symptoms or complaints. Patient is a current smoker [] Review of Systems Review of Systems Review symptoms as per history of present illness. All other review symptoms are negative All other systems were reviewed and found to be within normal limits, except as documented in this note. Current Medications Current Medications Current Medications Medications (Trade) Dose Ordered Sig/Tatiana Start Time Stop Time Status Last Admin Dose Admin Morphine Sulfate (Morphine 4mg Syringe) 4 mg 1X ONCE 04/13/19 12:00 04/13/19 12:06 DC 04/13/19 12:15 4 MG Ondansetron HCl (Zofran) 4 mg 1X ONCE 04/13/19 12:00 04/13/19 12:06 DC 04/13/19 12:15 4 MG Allergies Allergies Allergies Coded Allergies Type Severity Reaction Last Updated Verified No Known Drug Allergies 06/05/18 No Physical Exam Physical Exam Constitutional: Well developed, well nourished, moderate discomfort secondary to pain. [] HENT: Normocephalic, atraumatic, bilateral external ears normal, oropharynx moist, no oral exudates, nose normal. [] Eyes: PERRLA, EOMI, conjunctiva normal, no discharge. [] Neck: Normal range of motion, no tenderness, supple, no stridor. [] Cardiovascular:Heart rate regular rhythm, no murmur [] Lungs & Thorax: Bilateral breath sounds clear to auscultation, right lower axillary chest wall pain, reproduces with palpation. No subcutaneous emphysema or crepitus. [] Abdomen: Bowel sounds normal, soft, no tenderness, no masses, no pulsatile masses. [] Skin: Warm, dry, no erythema, no rash. [] Extremities: No tenderness, no cyanosis, no clubbing, ROM intact, no edema. [] Neurologic: Alert and oriented X 3, normal motor function, normal sensory function, no focal deficits noted. [] Psychologic: Affect normal, judgement normal, mood normal. [] Current Patient Data Lab Results Laboratory Tests Test 04/13/19 12:00 White Blood Count 12.3 x10^3/uL (4.0-11.0) H Red Blood Count 5.01 x10^6/uL (3.50-5.40) Hemoglobin 15.0 g/dL (12.0-15.5) Hematocrit 46.0 % (36.0-47.0) Mean Corpuscular Volume 92 fL (79-100) Mean Corpuscular Hemoglobin 30 pg (25-35) Mean Corpuscular Hemoglobin Concent 33 g/dL (31-37) Red Cell Distribution Width 14.5 % (11.5-14.5) Platelet Count 360 x10^3/uL (140-400) Neutrophils (%) (Auto) 71 % (31-73) Lymphocytes (%) (Auto) 21 % (24-48) L Monocytes (%) (Auto) 6 % (0-9) Eosinophils (%) (Auto) 1 % (0-3) Basophils (%) (Auto) 1 % (0-3) Neutrophils # (Auto) 8.8 x10^3uL (1.8-7.7) H Lymphocytes # (Auto) 2.6 x10^3/uL (1.0-4.8) Monocytes # (Auto) 0.7 x10^3/uL (0.0-1.1) Eosinophils # (Auto) 0.1 x10^3/uL (0.0-0.7) Basophils # (Auto) 0.1 x10^3/uL (0.0-0.2) Sodium Level 138 mmol/L (136-145) Potassium Level 3.6 mmol/L (3.5-5.1) Chloride Level 99 mmol/L (98-107) Carbon Dioxide Level 30 mmol/L (21-32) Anion Gap 9 (6-14) Blood Urea Nitrogen 14 mg/dL (7-20) Creatinine 1.0 mg/dL (0.6-1.0) Estimated GFR (Cockcroft-Gault) 58.0 BUN/Creatinine Ratio 14 (6-20) Glucose Level 142 mg/dL (70-99) H Calcium Level 8.7 mg/dL (8.5-10.1) Total Bilirubin 0.3 mg/dL (0.2-1.0) Aspartate Amino Transferase (AST) 12 U/L (15-37) L Alanine Aminotransferase (ALT) 24 U/L (14-59) Alkaline Phosphatase 88 U/L (46-116) Total Protein 8.0 g/dL (6.4-8.2) Albumin 3.6 g/dL (3.4-5.0) Albumin/Globulin Ratio 0.8 (1.0-1.7) L EKG EKG [EKG: Reviewed] Radiology/Procedures Radiology/Procedures ['CXR x-ray/right ribs: Atelectasis in lung bases,] Course & Med Decision Making Course & Med Decision Making Pertinent Labs and Imaging studies reviewed. (See chart for details) [Reproducible chest wall pain consistent with pleurisy or nondisplaced rib fracture. Imaging lab nondiagnostic. Symptoms improved with treatment. Recommend supportive care with PCP follow-up. Return precautions reviewed.] Dragon Disclaimer Dragon Disclaimer This electronic medical record was generated, in whole or in part, using a voice recognition dictation system. Departure Departure: Impression: Primary Impression: Bronchitis Additional Impression: Pleurisy Disposition: HOME, SELF-CARE Condition: STABLE Patient Instructions: Bronchitis, Pleurisy, [id number] Additional Instructions: Please continue home medications and take hydrocodone as needed for chest wall pain. Follow up with your PCP for reevaluation in 3-5 days. Return to the ED if new or worsening symptoms. Scripts Hydrocodone/Acetaminophen (Hydrocodone-Acetamin 5-325 mg) 1 Each Tablet 1 EACH PO Q6HRS, #10 TAB Prov: MARIEL BARRON DO 04/13/19 Problem Qualifiers MARIEL BARRON DO Apr 13, 2019 13:18
--- NOTE | 2019-04-13 17:24 | EKG ---
[address] [address] Test Date: 2019-04-13 Test Time: 12:01:18 Pat Name: PATRICK MARTINEZ Department: Room: Gender: F [employer]: : 1965 Requested By: MARIEL BARRON Order Number: [id number] Reading MD: Measurements Intervals [place] Rate: 86 P: 56 [place]: 154 QRS: 43 QRSD: 86 T: 28 QT: 354 QTc: 427 Interpretive Statements SINUS RHYTHM R-S TRANSITION ZONE IN V LEADS DISPLACED TO THE LEFT QRS(T) CONTOUR ABNORMALITY CONSIDER ANTEROSEPTAL MYOCARDIAL DAMAGE POSSIBLY ABNORMAL ECG RI6.01 No previous ECG available for comparison
== END 2019-04-13 13:12 | disposition home or self-care (01) ==
LOC: ER 11:43
DX: J40 Bronchitis, not specified as acute or chronic (principal); R09.1 Pleurisy; F41.9 Anxiety disorder, unspecified; I50.9 Heart failure, unspecified; F17.210 Nicotine dependence, cigarettes, uncomplicated; R07.89 Other chest pain; Z86.19 Personal history of other infectious and parasitic diseases
CPT/HCPCS: 36415; 71101; 80053; 85025; 93005; 96374; 96375; 99285; J2270; J2405

== ENCOUNTER → 2019-04-23 | Outpatient (CLI) | payer OTHER ==
[2019-04-13 12:59] VITALS: BP 145/88
[~2019-04-23] MED LIST changes: +HYDR-2759 PO
--- NOTE | 2019-04-23 14:11 | RAD ---
Lower extremity duplex artery ultrasound - Bilateral. Indication: Peripheral arterial disease, smoking, , . Comparison: None. PQRS Compliance Statement - Stenosis calculations for CT, MR and conventional angiography are based upon measurement of the distal ICA diameter in accordance with the NASCET methodology. Stenosis calculations for carotid ultrasound studies are derived from validated velocity criteria which are known to correlate with the NASCET methodology. Procedure: Realtime grayscale B-mode 2D sonographic images of the Leg arteries were performed with color flow, and spectral waveform analysis Doppler imaging. Findings: Right leg: Triphasic waveform is seen in the right common femoral artery continues in the runoff of the right leg. Left leg: Triphasic waveform left common femoral artery propagates in the runoff of the left leg.. Right cm/sec Left cm/sec Common Femoral Artery PSV 113 124 Deep Femoral Artery PSV 50 70 Superficial Femoral Artery PSV 113, 87, 92 125, 105, 99 Popliteal Artery PSV 48 71 Crural Trunk Artery PSV - - P Tibial Artery PSV 72 98 A Tibial Artery PSV 56 38 Peroneal Artery PSV 62 112 Dorsalis Pedis Artery PSV 113 112 Impression: No evidence of hemodynamically significant stenosis Electronically signed by: Shaheen Burrell MD (04/23/2019 2:08 PM) [id number]
== END | disposition home or self-care (01) ==
LOC: US 09:57
PROVIDERS: ATTEND Physician Assistant Medical
DX: I73.9 Peripheral vascular disease, unspecified (principal)
CPT/HCPCS: 93925

== ENCOUNTER → 2019-05-08 | Outpatient (CLI) | payer OTHER ==
[2019-04-13 12:59] VITALS: BP 145/88
[~2019-05-08] MED LIST changes: +IOHEXOL 240 MG/ML 50ML VIAL. ONE; +IOHEXOL 300 MG/ML 75 ML VIAL. IV ONE
--- NOTE | 2019-05-08 17:58 | RAD ---
CT ABD PELV W/ORAL IV CONTRAST Indication: Fainting spells, abdominal distention and illness for 5 months. Exposure: One or more of the following individualized dose reduction techniques were utilized for this examination: 1. Automated exposure control 2. Adjustment of the mA and/or kV according to patient size 3. Use of iterative reconstruction technique. Technique: Intravenous contrast was given. Oral contrast was given. Comparison: 06/05/2018. FINDINGS: Lung bases are clear. Liver appears unremarkable. Spleen unremarkable. Pancreas unremarkable. No evidence of adrenal mass. Kidneys demonstrate symmetric enhancement without focal mass or hydronephrosis. No calcified gallstone. Aorta is mildly calcified without aneurysm. Small iliac lymph nodes are seen bilaterally, largest measuring 1 cm in short axis on the left. Small retroperitoneal lymph nodes are identified, measuring up to 9 mm in short axis. These nodes are similar to the prior exam. No pathologic mesenteric lymph node enlargement is seen. Stomach is not distended. No significant small bowel distention. No evidence of acute colitis. Mild colonic diverticulosis. The appendix appears normal and does opacify with contrast. No evidence of ascites. No evidence of pneumoperitoneum. Urinary bladder is not adequately distended for evaluation. No evidence of pelvic mass. Degenerative spondylosis, appearance similar to prior exam. No evidence of acute fracture or aggressive bone destruction. IMPRESSION: 1. Prominent retroperitoneal and iliac lymph nodes, stable since prior study. 2. No acute findings in the abdomen or pelvis. Electronically signed by: Gabriel Dueñas MD (05/08/2019 5:56 PM) [facility]
== END | disposition home or self-care (01) ==
LOC: CT 09:28
PROVIDERS: ATTEND Physician Assistant Medical
DX: K57.30 Diverticulosis of large intestine without perforation or abscess without bleeding (principal); M47.816 Spondylosis without myelopathy or radiculopathy, lumbar region
CPT/HCPCS: 74177; Q9967

== ENCOUNTER → 2019-09-09 | Outpatient (CLI) | payer OTHER ==
[~2019-09-09] MED LIST changes: -IOHEXOL 240 MG/ML 50ML VIAL. ONE; -IOHEXOL 300 MG/ML 75 ML VIAL. IV ONE
--- NOTE | 2019-09-09 10:14 | CARD ---
MR#: [id number] Date of Study: 09/09/2019 Ordering Physician: JAGUAR WOODS, Referring Physician: JAGUAR WOODS, Tech: Alma Delia Erazo RDCS APPROVED REPORT EXAM: Two-dimensional and M-mode echocardiogram with Doppler and color Doppler. INDICATION Venous Insufficiency RISK FACTORS Obesity Hyperlipidemia Smoking 2D DIMENSIONS RVDd2.3 (2.9-3.5cm)Left Atrium(2D)2.9 (1.6-4.0cm) IVSd0.7 (0.7-1.1cm)Aortic Root(2D)3.1 (2.0-3.7cm) LVDd5.3 (3.9-5.9cm)LVOT Diameter1.9 (1.8-2.4cm) PWd0.8 (0.7-1.1cm)LVDs4.1 (2.5-4.0cm) FS (%) 21.2 %SV56.6 ml LVEF(%)55.0 (>50%) Aortic Valve AoV Peak Ariel.115.1cm/sAoV VTI20.5cm AO Peak GR.5.3mmHgLVOT Peak Ariel.120.0cm/s LVOT VTI 22.99cmAO Mean GR.3mmHg SHITAL (VMAX)3.89wi9OGU (VTI)3.33cm2 Mitral Valve MV E Eytigjbs21.3cm/sMV DECEL IUCE704ra MV A Ujozmryw27.4cm/sE/A Ratio0.9 Pulmonary Vein S1 Nhimrlxr05.8cm/sD2 Jmivblak39.0cm/s LEFT VENTRICLE The left ventricle is normal size. There is normal left ventricular wall thickness. The left ventricu lar systolic function is normal. The Ejection Fraction is 55-60%. There is normal LV segmental wall m otion. Transmitral Doppler flow pattern is Grade I-abnormal relaxation pattern. RIGHT VENTRICLE The right ventricle is normal size. The right ventricular systolic function is normal. ATRIA The left atrium size is normal. The right atrium size is normal. The interatrial septum is intact wit h no evidence for an atrial septal defect or patent foramen ovale as noted on 2-D or Doppler imaging. AORTIC VALVE The aortic valve is normal in structure and function. Doppler and Color Flow revealed no significant aortic regurgitation. There is no significant aortic valvular stenosis. MITRAL VALVE The mitral valve is normal in structure and function. There is no evidence of mitral valve prolapse. There is no mitral valve stenosis. Doppler and Color Flow revealed no mitral valve regurgitation note d. TRICUSPID VALVE The tricuspid valve is normal in structure and function. Doppler and Color Flow revealed no tricuspid valve regurgitation noted. There is no tricuspid valve stenosis. PULMONIC VALVE The pulmonic valve is not well visualized. Doppler and Color Flow revealed no pulmonic valvular regur gitation. There is no pulmonic valvular stenosis. GREAT VESSELS The aortic root is normal in size. The ascending aorta is not well seen. The IVC is normal in size an d collapses >50% with inspiration. PERICARDIAL EFFUSION There is no evidence of significant pericardial effusion. Critical Notification Critical Value: No <Conclusion> The left ventricular systolic function is normal. The Ejection Fraction is 55-60%. There is normal LV segmental wall motion. Transmitral Doppler flow pattern is Grade I-abnormal relaxation pattern. There is no evidence of significant pericardial effusion. Signed by : Arvind Taylor, Electronically Approved : 09/09/2019 10:13:51
--- NOTE | 2019-09-09 12:26 | RAD ---
MR#: [id number] Date of Study: 09/09/2019 Ordering Physician: JAGUAR CARROLL, Referring Physician: JAGUAR CARROLL, Tech: Eun Perez RVT, [facility] APPROVED REPORT Patient Location : OUT-PATIENT Indications Lower Extremity Edema : Grayscale images of the bilateral saphenofemoral junctions are grossly unremarkable. The right great saphenous vein measures 5 mm and the left great saphenous vein measures 6 mm. Both of the greater s aphenous veins do not show any evidence of reflux. The bilateral lesser saphenous veins did not show any evidence of reflux. Critical Notification Critical Value: No <Conclusion> 1. Negative for reflux in the bilateral greater and lesser saphenous veins Signed by : Jaguar Carroll, Electronically Approved : 09/09/2019 12:26:25
== END | disposition home or self-care (01) ==
LOC: ECHO 09:04
PROVIDERS: ATTEND Internal Medicine Cardiovascular Disease
DX: I87.2 Venous insufficiency (chronic) (peripheral) (principal)
CPT/HCPCS: 93306; 93970

== ENCOUNTER → 2019-10-27 | Outpatient (CLI) | payer OTHER ==
--- NOTE | 2019-10-27 13:36 | RAD ---
Thyroid ultrasound without comparison for enlarged thyroid. TECHNIQUE AND FINDINGS: Real-time grayscale and color Doppler evaluation of the thyroid gland is performed. The right lobe measures 5.0 x 1.9 x 1.9 cm and the left measures 4.7 x 1.8 x 1.5 cm. The isthmus measures 5 mm in thickness. Gland echotexture is homogeneous, and there is normal color flow throughout the gland. Within the right lobe of the thyroid, there are 2 discrete nodules, the first of which is not well depicted, but appears isoechoic with a thin hypoechoic capsule, measuring 1.3 x 1.3 x 1.0 cm. No internal calcifications. This nodule does appear taller than wide, however this is likely due to incomplete demonstration of its margins. The second nodule more inferiorly within the gland is heterogeneously hyperechoic with a few internal cystic elements and no internal calcifications, and also with a thin hypoechoic rim. This measures 1.4 x 1.0 x 1.5 cm. Within the left lobe of the thyroid gland, there are also 2 discrete heterogeneous solid hyperechoic nodules within hypoechoic rims similar appearance to the contralateral nodules. At the midpole the nodule measures 1.3 x 1.2 x 1.3 cm and at the inferior pole a nodule measures 1.8 x 1.6 x 1.7 cm. No extrathyroidal extension is seen and no suspicious adenopathy is evident. IMPRESSION: 1. Multinodular thyroid as described. The dominant nodule is in the inferior left lobe measuring 1.8 cm. All nodules are TR 2, except for the smallest 1.3 mm nodule at the midpole of the right thyroid gland which appears taller than wide thereby escalating it to TR 4, though this is likely spurious due to suboptimal demonstration of its entirety. Annual surveillance is recommended at this time. ACR TI-RADS 2017 Composition - cystic or completely cystic: Benign, no further score - spongiform: Benign, no further score - mixed cystic and Solid: 1 point - solid or almost completely solid: 2 points Echogenicity - anechoic: 0 points - hyper- or isoechoic: 1 point - hypoechoic: 2 points - very hypoechoic: 3 points Shape (assess on transverse plane) - wider than tall: 0 points - taller than wide: 3 points Margin - smooth: 0 points - ill-defined: 0 points - lobulated/irregular: 2 points - extra-thyroidal extension: 3 points Echogenic Foci - none: 0 points - large comet tail artifact: 1 point - peripheral/rim calcifications: 2 points - punctate echogenic foci: 3 points TR1 - 0-1 points; Benign TR2 - 2 points; Not Suspicious TR3 - 3 points; Mildly Suspicious; Follow-up at 1,3,5 years for >= 1.5cm and FNA for >=2.5cm TR4 - 4-6 points; Moderately Suspicious; Follow-up at 1,2,3,5 years for >= 1.0cm and FNA for >= 1.5cm TR5 - 7+ points; Highly Suspicous; Follow=up at 1,2,3,4,5 years for >= 0.5cm and FNA for >= 1.0cm Notes: Only score and report the Four highest scoring nodules. Significant interval enlargement on follow-uup is defined as >20% and > 2mm in two dimensions or > 50% increase in volume. If there are multiple nodules, the two with the highest ACR TI-RADS score should be sampled, rather than the two largest. Electronically signed by: Luiz Cadet MD (10/27/2019 1:33 PM) [id number]
== END | disposition home or self-care (01) ==
LOC: US 11:00
PROVIDERS: ATTEND Physician Assistant Medical
DX: E04.2 Nontoxic multinodular goiter (principal)
CPT/HCPCS: 76536

== ENCOUNTER 2020-07-21 16:39 | Emergency (ER) | payer BC, OTHER ==
[~2020-07-21] VITALS: Ht 157.5 cm; Wt 100.9 kg
[2020-07-21 16:44] VITALS: BP 153/86
[2020-07-21] MEDS ORDERED: CLIN300C9 PO (18:28)
[2020-07-21] MEDS ORDERED: HYDR-2155 PO (18:28)
--- NOTE | 2020-07-21 18:28 | PHYS DOC ---
Past History Past Medical History: Anxiety, Bronchitis, CHF, Hypertension, Hepatitis, Other Additional Past Medical Histor: Chronic cellulitis Past Surgical History: No Surgical History Smoking: Cigarettes Alcohol Use: None Drug Use: None General Adult EDM: Chief Complaint: CELLULITIS HPI: HPI: 55-year-old female presents with bilateral lower extremity swelling and redness that has been ongoing for the past 2 weeks. Patient reports swelling and redness have worsened. Patient does report history of chronic cellulitis. Denies history of DVT. Denies diabetes. Denies use of immunosuppressive's. Patient reports previously has been treated for her cellulitis in the past with oral antibiotics that improves her symptoms. Patient reports she is going to start with a new PCP and has an appointment in the next few days. Patient reports she previously had been on some diuretics for her peripheral edema but has not followed with a physician for some time. Review of Systems: Review of Systems: Constitutional: Denies fever or chills Eyes: Denies redness or eye pain HENT: Denies nasal congestion or sore throat Respiratory: Denies cough or shortness of breath Cardiovascular: Denies chest pain or palpitations GI: Denies abdominal pain, nausea, or vomiting : Denies dysuria or hematuria Musculoskeletal: Denies back pain; reports bilateral lower extremity edema Integument: Reports bilateral lower extremity erythema Neurologic: Denies headache, focal weakness or sensory changes Complete systems were reviewed and found to be within normal limits, except as documented in this note. Allergies: Allergies: Allergies Coded Allergies Type Severity Reaction Last Updated Verified Sulfa (Sulfonamide Antibiotics) Allergy Unknown 07/21/20 Yes doxycycline Allergy Unknown 07/21/20 Yes Physical Exam: PE: Constitutional: Well developed, well nourished, no acute distress, non-toxic appearance HENT: Normocephalic, atraumatic Eyes: Conjunctiva normal, no discharge Neck: Normal range of motion, supple Lungs & Thorax: No respiratory distress, equal chest rise and fall Skin: Warm, dry, bilateral lower extremity erythema from distal third of lower extremity onto feet Extremities: Mild tenderness on palpation of bilateral feet, ROM intact, 2+ pitting edema primarily to dorsum of feet but does extend to distal third of tibia bilaterally. Neurologic: Alert and oriented X 3, no focal deficits noted Psychologic: Affect normal, judgment normal Current Patient Data: Vital Signs: Vital Signs Date Time Temp Pulse Resp B/P (MAP) Pulse Ox O2 Delivery O2 Flow Rate FiO2 07/21/20 16:39 98.5 116 20 153/86 (108) 96 Room Air EKG: EKG: [] Radiology/Procedures: Radiology/Procedures: [] Heart Score: C/O Chest Pain: N/A Course & Med Decision Making: Course & Med Decision Making Patient presents with HPI and physical exam concerning for bilateral lower extremity cellulitis and peripheral edema. Afebrile. Patient denies immunocompromise state. Empiric antibiotic initiated. Patient to follow in the next few days with her PCP. Patient advised to return for any worsening of symptoms or further concern. Patient stable for discharge with outpatient follow-up with PCP. Discussed findings and plan with patient, who acknowledges understanding and agreement. Casimiro Disclaimer: Casimiro Disclaimer: This electronic medical record was generated, in whole or in part, using a voice recognition dictation system. Departure Departure: Impression: Primary Impression: Cellulitis Qualified Codes: L03.119 - Cellulitis of unspecified part of limb Additional Impression: Peripheral edema Disposition: HOME / SELF CARE / HOMELESS Condition: STABLE Referrals: RYAN RADER (PCP) Patient Instructions: Cellulitis, [id number], Peripheral Edema Scripts Clindamycin Hcl (CLINDAMYCIN HCL) 300 Mg Capsule 1 CAP PO TID for infection, #30 CAP Prov: ADRIENNE WOOD DO 07/21/20 Hydrocodone Bit/Acetaminophen (HYDROCODONE-APAP 5-325 ) 1 Each Tablet 0.5-1 TAB PO PRN Q6HRS PRN for PAIN, #10 TAB 0 Refills Prov: ADRIENNE WOOD DO 07/21/20 ADRIENNE WOOD DO July 21, 2020 18:28
[2020-07-21] MEDS ORDERED: CLINDAMYCIN HCL 150 MG CAPSULE PO ONE (18:30)
[2020-07-21] MEDS ORDERED: CLINDAMYCIN HCL 150 MG CAPSULE ONE (18:31)
== END 2020-07-21 18:34 | disposition home or self-care (01) ==
LOC: ER 16:39
DX: L03.116 Cellulitis of left lower limb (principal); L03.115 Cellulitis of right lower limb; R60.0 Localized edema; F41.9 Anxiety disorder, unspecified; I11.0 Hypertensive heart disease with heart failure; I50.9 Heart failure, unspecified; F17.210 Nicotine dependence, cigarettes, uncomplicated; Z88.2 Allergy status to sulfonamides; Z88.1 Allergy status to other antibiotic agents
CPT/HCPCS: 99283

== ENCOUNTER → 2021-07-29 | Outpatient (CLI) | payer BC ==
[~2021-07-29] MED LIST changes: +CLIN-95 PO; +HYDR-2155 PO
--- NOTE | 2021-07-29 15:16 | RAD ---
EXAMINATION: Thyroid sonogram. INDICATION: Multinodular goiter. COMPARISON: 10/27/2019 Technique: Real-time grayscale and color Doppler imaging of the thyroid gland was performed per loretta col. Findings: The right thyroid lobe measures: 5.3 x 1.7 x 1.9 cm. The left thyroid lobe measures: 6.6 x 2.2 x 2.4 cm. The isthmus measures: 0.91 cm. Estimated total number of nodules >/= 1cm: 1 Number of spongiform nodules >/= 2cm not described below (TR1): 0 The thyroid parenchyma is diffusely heterogeneous. Nodule #1: Maximum size: 1.7 cm Location: Inferior right thyroid lobe. Composition: Solid or almost completely solid (2 points) Echogenicity: Hyperechoic or isoechoic (1 point) Shape: [id number] (3 points) Margins: Smooth (0 points) Echogenic foci: None or large comet-tail artifacts (0 points) ACR TI-RADS total points: 6. ACR TI-RADS risk category: TR4 (4-6 points) - Moderately suspicious. FNA if ?1.5 cm. Follow if ?1 cm. The nodule has increased compared to a prior maximum measurement of 1.5 cm. The nodule is nearly comp lete solid. The previously demonstrated small suspected cystic component is no longer seen. The additional previously described bilateral poor nodules are not discretely current exam. These may represent pseudonodules secondary to diffusely heterogeneous thyroid parenchyma. IMPRESSION: 1. Slight increase in the size of a 1.7 cm right thyroid nodule. TI-RADS Category 4. Fine-needle aspi ration of this nodule is recommended according to ACR criteria. 2. Diffusely heterogeneous thyroid parenchyma. The previously described nodules are not discretely me asurable on the current exam, favoring pseudonodules. The prior dominant nodule within the inferior l eft thyroid lobe demonstrating benign pathology findings with fine-needle aspiration is less conspicu ous on the current exam. ACR TI-RADS recommendations TR5 (?7 points) - FNA if ? 1cm, follow-up if 0.5 - 0.9 cm every year for 5 years TR4 (4-6 points) - FNA if ? 1.5cm, follow-up if 1 - 1.4 cm in 1, 2, 3 and 5 years TR3 (3 points)- FNA if ? 2.5cm, follow-up if 1.5 - 2.4 cm in 1, 3 and 5 years TR2 (2 points) & TR1 (0 points) - No FNA or follow-up *Decision to biopsy should include other considerations such as patient demographics and relevant cli nical information. Reference: TIRADS 2017 J Am Osmani Radiol 2017;14:[id number] Electronically signed by: Madyson Pruitt MD (07/29/2021 3:14 PM) [id number]
== END ==
LOC: US 13:08
PROVIDERS: ATTEND Family Medicine
DX: E04.2 Nontoxic multinodular goiter (principal)
CPT/HCPCS: 76536